=== PATIENT | male | born 1980 | race Caucasian/White ===

== ENCOUNTER 2017-05-30 14:11 | Emergency (ER) | payer BC ==
[2017-05-30 14:32] VITALS: BP 147/89
--- NOTE | 2017-05-30 14:59 | UC ---
Throat Pain/Nasal [place] HPI - HPI Summary HPI Summary: sore throat for 10 days - tried otc ibuprofen, gargling with salt water without relief. lymph nodes on left side of face swollen denies any other upper respiratory symptoms at this time - History of Current Complaint Chief Complaint: UCRespiratory Stated Complaint: ST Time Seen by Provider: 05/30/17 14:52 Hx Obtained From: Patient Onset/Duration: Lasting Weeks Severity: Moderate Cough: None Associated Signs & Symptoms: Positive: Negative - Epiglottits Risk Factors Epiglottis Risk Factors: Negative - Allergies/Home Medications Allergies/Adverse Reactions: Allergies Allergy/AdvReac Type Severity Reaction Status Date / Time No Known Allergies Allergy Verified 05/30/17 14:33 PMH/Surg Hx/FS Hx/Imm Hx Previously Healthy: Yes - Surgical History Surgical History: None - Family History Known Family History: Positive: Cardiac Disease - grandmother, Hypertension - father, Diabetes - grandmother - Social History Alcohol Use: Weekly Substance Use Type: None Smoking Status (MU): Heavy Every Day Tobacco Smoker Type: Cigarettes Amount Used/How Often: 1 ppd Length of Time of Smoking/Using Tobacco: since age 16 - Immunization History Most Recent Influenza Vaccination: fall 2015 Review of Systems Constitutional: Fatigue Skin: Negative Eyes: Negative ENT: Sore Throat Respiratory: Negative Cardiovascular: Negative Gastrointestinal: Negative Genitourinary: Negative Neurovascular: Negative Musculoskeletal: Negative Neurological: Negative Psychological: Negative Is Patient Immunocompromised?: No All Other Systems Reviewed And Are Negative: Yes Physical Exam Triage Information Reviewed: Yes Appearance: Ill-Appearing Vital Signs: Initial Vital Signs Temp 98.6 F 05/30/17 14:26 Pulse 99 05/30/17 14:26 Resp 14 05/30/17 14:26 BP 147/89 05/30/17 14:26 Pulse Ox 100 05/30/17 14:26 Vital Signs Reviewed: Yes Eye Exam: Normal ENT: Positive: Pharyngeal erythema, TM bulging - left, Tonsillar swelling - left side Respiratory Exam: Normal Cardiovascular Exam: Normal Psychological Exam: Normal Skin Exam: Normal Throat Pain/Nasal Course/Dx - Course Course Of Treatment: strep swab done by nurse - result. take antibiotic and steroid as directed - has had prednisone before so aware of use and common side effects. increase fluid intake daily while on abx to prevent dehydration. continue ibuprofen every 6 hours prn pain/fever. f/u pcp 1 week if symptoms resolving or getting worse - Differential Dx/Diagnosis Differential Diagnosis/HQI/PQRI: Pharyngitis, Tonsillitis Provider Diagnoses: pharyngitis/strep throat Discharge - Discharge Plan Condition: Good Disposition: HOME Prescriptions: Azithromycin 200/5 SUSP(NF) [Zithromax 200 mg/5 ml SUSP(NF)] 400 mg PO .NOW, THEN 200MG DEB 5 Days #1 btl predniSONE TAB* [Deltasone TAB*] 20 mg PO DAILY 5 Days #5 tab Patient Education Materials: Pharyngitis (ED), Strep Throat (ED) Referrals: Pierre Forbes MD [Primary Care Provider] - 1 Week
== END 2017-05-30 15:28 | disposition home or self-care (01) ==
LOC: UCCORT 14:11
DX: J02.0 Streptococcal pharyngitis (principal); F17.210 Nicotine dependence, cigarettes, uncomplicated
CPT/HCPCS: 87651; 99212; G0463

== ENCOUNTER 2019-02-27 14:14 | Emergency (ER) | payer BC ==
[2019-02-27 15:42] VITALS: BP 150/90
--- NOTE | 2019-02-27 16:04 | UC ---
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 no injury/ trauma. Episode ~ 3 years ago, better with flexeril, rest, no symptoms since. Denies numbness, tingling, loss of bowel/ bladder function. Full strength, limited ROM due to pain. Patient is 6'8, so often times bending over - History of Current Complaint Chief Complaint: UCBackPain Stated Complaint: BACK PAIN Time Seen by Provider: 02/27/19 15:35 Hx Obtained From: Patient Onset/Duration: Sudden Onset, Lasting Days Timing: Constant Severity Initially: Moderate Severity Currently: Moderate Pain Intensity: 0 Pain Scale Used: 0-10 Numeric Back Pain: Is Discrete @ - thoracic/ lower spine Aggravating Factor(s): Movement Alleviating Factor(s): Rest, OTC Meds - motrin improved - Allergies/Home Medications Allergies/Adverse Reactions: Allergies Allergy/AdvReac Type Severity Reaction Status Date / Time No Known Allergies Allergy Verified 02/27/19 15:35 PMH/Surg Hx/FS Hx/Imm Hx Previously Healthy: Yes - h/o DM in past - Surgical History Surgical History: None - Family History Known Family History: Positive: Cardiac Disease - grandmother, Hypertension - father, Diabetes - grandmother, Non-Contributory - Social History Alcohol Use: Occasionally Substance Use Type: None Smoking Status (MU): Heavy Every Day Tobacco Smoker Type: Cigarettes Amount Used/How Often: 1/2-1 ppd Length of Time of Smoking/Using Tobacco: since age 16 - Immunization History Most Recent Influenza Vaccination: fall 2015 Review of Systems All Other Systems Reviewed And Are Negative: Yes Constitutional: Negative: Fever, Chills, Fatigue Neurovascular: Negative: Decreased Sensation, Decreased Pulses Musculoskeletal: Positive: Arthralgia, Myalgia. Negative: Decreased ROM Neurological: Negative: Headache Psychological: Negative: Anxious Is Patient Immunocompromised?: No Physical Exam Triage Information Reviewed: Yes Appearance: Well-Appearing, Well-Nourished, Pain Distress - mild with movements Vital Signs: Initial Vital Signs Temp 97.9 F 02/27/19 15:37 Pulse 86 02/27/19 15:37 Resp 20 02/27/19 15:37 BP 150/90 02/27/19 15:37 Pulse Ox 99 02/27/19 15:37 Vital Signs Reviewed: Yes Eyes: Positive: Conjunctiva Clear ENT: Positive: Hearing grossly normal Musculoskeletal: Positive: ROM Intact - knee, ankle hip strength 5/5 b/l, neg homans. good flexion/ ext of hips, No Edema - b/l LEs, Other: - no TTP over entire spine, + TTP over Leftthoracic paraspinal muscles with knots noted, L>R, soft tissue tenderness lower flank, neg cva B/L. Neurological: Positive: Other: - patellar reflexes 2+ B/L, SITLT distal to knees. Psychological Exam: Normal Back Pain Course/Dx - Course Course Of Treatment: Back STrain - Flexeril as needed for back spasms - Valium as needed for severe back spasms at night - Naproxen 250mg twice daily x 3-4 days to decreased swelling/ inflammation - Work note given - GO to ER with numbness, tingling, loss of bowel/ bladder function - Heat, Ice as needed for comfort, increase rest. No heavy lifting > 10 pounds for 2-3 days - WOrk note given - If no improvement follow up with DR. Forbes or call Dr. Daniels office for back pain clinic - Physical therapy would benefit to prevent further occurrences. - Differential Dx/Diagnosis Differential Diagnosis/HQI/PQRI: Strain, Sprain Provider Diagnosis: Strain of thoracic back region Discharge ED - Sign-Out/Discharge Documenting (check all that apply): Patient Departure All imaging exams completed and their final reports reviewed: No Studies - Discharge Plan Condition: Good Disposition: HOME Prescriptions: Cyclobenzaprine TAB* [Flexeril 10 MG TAB*] 10 mg PO TID PRN #20 tab PRN Reason: muscle spasms diazePAM [Diazepam] 5 mg PO BEDTIME PRN #3 tablet MDD 1 PRN Reason: Spasms - Back Patient Education Materials: Low Back Strain (ED), Core Strengthening Exercises (GEN), Lower Back Exercises (ED), Core Strengthening Exercises (ED) Forms: *Work Release Referrals: Pierre Forbes MD [Primary Care Provider] - Arturo Drummond MD [Medical Doctor] - Additional Instructions: - Flexeril as needed for back spasms - Valium as needed for severe back spasms at night - Naproxen 250mg twice daily x 3-4 days to decreased swelling/ inflammation - Work note given - GO to ER with numbness, tingling, loss of bowel/ bladder function - Heat, Ice as needed for comfort, increase rest. No heavy lifting > 10 pounds for 2-3 days - WOrk note given - If no improvement follow up with DR. Forbes or call Dr. Daniels office for back pain clinic - Physical therapy would benefit to prevent further occurrences. - Billing Disposition and Condition Condition: GOOD Disposition: Home
== END 2019-02-27 16:13 | disposition home or self-care (01) ==
LOC: UCCORT 14:14
DX: S29.012A Strain of muscle and tendon of back wall of thorax, initial encounter (principal); E11.9 Type 2 diabetes mellitus without complications; M54.5 Low back pain; F17.210 Nicotine dependence, cigarettes, uncomplicated; X58.XXXA Exposure to other specified factors, initial encounter; Y92.9 Unspecified place or not applicable
CPT/HCPCS: 99212; G0463